=== PATIENT | female | born 1985 | race Caucasian/White ===

== ENCOUNTER 2016-10-16 07:10 | Inpatient (IN) | payer BC ==
[~2016-10-16 07:10] MED LIST: Acetaminophen 325 MG Tab PO PRN; Nalbuphine 20 MG/1 ML Amp IVPUSH PRN; Ondansetron 4 MG/2 ML SDV IVPUSH PRN; Sodium Chloride 0.9% 10 ML Syringe FLUSH PRN
[2016-10-16] MEDS ORDERED: Lactated Ringers 1,000 ML IV SCH (07:15)
[2016-10-16] MEDS ORDERED: Oxytocin/Lactated Ringers 10 UNIT/1,000 ML BAG IV SCH ×2 (07:15)
--- NOTE | 2016-10-16 07:16 | PCM.LDHP ---
L&D History of Present Illness - General Date of Service: 10/16/16 Admit Problem/Dx: Admission Diagnosis/Problem Admission Diagnosis/Problem Source of Information: Patient History Limitations: Reports: No Limitations - History of Present Illness Introduction:: Patient is a 31 y/o at 40 0/7 wks gestation who present for planned IOL. Doing well today. No specific concerns or complaints. Not noticing any signs of labor at this time. 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): Social & Family History - Tobacco Use Smoking Status *Q: Never Smoker - Alcohol Use Alcohol Use History: No - Recreational Drug Use Recreational Drug Use: No H&P Review of Systems - Review of Systems: Review Of Systems: See Below General: Reports: No Symptoms Pulmonary: Reports: No Symptoms Cardiovascular: Reports: No Symptoms Gastrointestinal: Reports: No Symptoms Genitourinary: Reports: No Symptoms Musculoskeletal: Reports: No Symptoms L&D Exam - Exam Exam: See Below - OB Specific Contraction Intensity: Mild Movement: Active Heart Tones: Present Heart Tones per Min: 125 Heart Rate (FHR) Variability: Moderate (6-25 bmp) Presentation: Vertex - Mckeon Score Mckeon Score Cervix Position: Midposition Mckeon Score Consistency: Soft Mckeon Score Effacement: 31-50% Mckeon Score Dilation: 3-4 cm Mckeon Score Infant's Station: -2 Mckeon Score Total: 7 - Exam General: Alert, Oriented, Cooperative Lungs: Clear to Auscultation, Normal Respiratory Effort Cardiovascular: Regular Rate, Regular Rhythm Abdomen: Soft Genitourinary: Normal external exam Extremities: Normal Inspection Skin: Warm, Dry, Intact - Patient Data Result Diagrams: 10/16/16 07:28 - Problem List (1) 40 weeks gestation of SNOMED Code(s): 49611248 ICD Code: Z3A.40 - 40 WEEKS GESTATION OF Status: Acute Current Visit: Yes (2) Elective induction of labor planned SNOMED Code(s): 369742665 ICD Code: [id number] - Status: Acute Current Visit: Yes Problem List Initiated/Reviewed/Updated: Yes Orders Last 24hrs: Active Orders 24 hr Category Date Time Status Activity as Tolerated [RC] PFP Care 10/16/16 07:07 Active Communication Order [RC] ASDIRECTED Care 10/16/16 07:07 Active Communication Order [RC] ASDIRECTED Care 10/16/16 07:07 Active Communication Order [RC] ASDIRECTED Care 10/16/16 07:07 Active Heart Tones [RC] ASDIRECTED Care 10/16/16 07:10 Active Notify Provider [RC] ASDIRECTED Care 10/16/16 07:07 Active Peripheral IV Care [RC] . DIRECTED Care 10/16/16 07:10 Active Vaginal Exam [RC] ASDIRECTED Care 10/16/16 07:07 Active Vital Signs [RC] ASDIRECTED Care 10/16/16 07:07 Active Regular Diet [DIET] Diet 10/16/16 Breakfast Active CBC W/O DIFF,HEMOGRAM [HEME] Routine Lab 10/16/16 07:07 Ordered TYPE AND SCREEN [BBK] Routine Lab 10/16/16 07:07 Ordered Acetaminophen [Tylenol] Med 10/16/16 07:07 Pending 650 mg PO Q4H PRN Lactated Ringers [Ringers, Lactated] 1,000 ml Med 10/16/16 07:15 Ordered IV ASDIRECTED Nalbuphine [Nubain] Med 10/16/16 07:07 Ordered 10 mg IVPUSH Q2H PRN Ondansetron [Zofran] Med 10/16/16 07:07 Ordered 4 mg IVPUSH Q4H PRN Oxytocin/Lactated Ringers [Pitocin in LR 10 Units/1,000 Med 10/16/16 07:15 Ordered ML] 10 unit in 1,000 ml IV TITRATE Oxytocin/Lactated Ringers [Pitocin in LR 10 Units/1,000 Med 10/16/16 07:15 Ordered ML] 10 unit in 1,000 ml IV TITRATE Sodium Chloride 0.9% [Saline Flush] Med 10/16/16 07:07 Ordered 10 ml FLUSH ASDIRECTED PRN Electronic Heart Tones Ext w TOCO [WOMSER] Ot 10/16/16 07:07 Ordered Routine Electronic Heart Tones Internal [WOMSER] Per Unit Ot 10/16/16 07:07 Ordered Routine Peripheral IV Insertion Adult [OM.PC] Routine Ot 10/16/16 07:07 Ordered Medication Orders Acetaminophen (Tylenol) 650 mg PO Q4H PRN PRN Reason: Pain (Mild 1-3) and fever Lactated Ringer's (Ringers, Lactated) 1,000 mls @ 40 mls/hr IV ASDIRECTED JERAD Oxytocin/Lactated Ringer's (Pitocin In Lr 10 Units/1,000 Ml) 10 unit in 1,000 mls @ 500 mls/hr IV TITRATE JERAD PRN Reason: Protocol Oxytocin/Lactated Ringer's (Pitocin In Lr 10 Units/1,000 Ml) 10 unit in 1,000 mls @ 12 mls/hr IV TITRATE JERAD; 2 MUNITS/MIN PRN Reason: Protocol Nalbuphine HCl (Nubain) 10 mg IVPUSH Q2H PRN PRN Reason: Pain (moderate 4-6) Ondansetron HCl (Zofran) 4 mg IVPUSH Q4H PRN PRN Reason: Nausea/Vomiting Sodium Chloride (Saline Flush) 10 ml FLUSH ASDIRECTED PRN PRN Reason: Keep Vein Open Assessment/Plan Comment:: 31 y/o at 40 0/7 wks who presents for elective IOL * CBC and T&S * On initial exam baby found to be breech. Counseled on options. Patient did elect for trial of ECV which was done and unsuccessful. See procedure note. She did desire discharge after ECV, however, was jordy and had made cervical change since clinic earlier this week. She was advised that safest option at this time would be moving forward with a . She agreed. Consent signed and OR crew alerted * Melissa DE JESUS
--- NOTE | 2016-10-16 08:42 | PCM.PRNOTE ---
- Free Text/Narrative Note: PROCEDURE NOTE Procedure Date: Pre-operative Diagnosis: 1. at 40 0/7 wks gestation 2. Breech Presentation Post-operative Diagnosis: 1. As above s/p unsucessful external cephalic version Anesthesia: None Description of Operation/Procedure: The risks, benefits, indications, potential complications, and alternatives were explained to the patient and informed consent obtained. Patient was placed in the supine position. Ultrasound was used to confirm complete breech presentation and appropriate GEOFFREY. Hands were placed on the patient's abdomen. The breech was elevated out of the pelvis while clockwise traction was applied to the head. Ultrasound assessed cardiac activity throughout procedure. Procedure was eventually abandoned due to not being successful. The patient tolerated the procedure well and was placed on continuous electronic monitoring for several hours following the procedure. Complications: The patient tolerated the procedure well and no complications were noted. Plan: Patient Rh positive. No need for Rhogam See H&P from today for further delivery planning
--- NOTE | 2016-10-16 09:27 | PCM.PREANE ---
Preanesthetic Assessment - Anesthesia/Transfusion/Family Hx Anesthesia History: Prior Anesthesia Without Reaction Family History of Anesthesia Reaction: No Transfusion History: No Prior Transfusion(s) Intubation History: Unknown - Review of Systems General: No Symptoms Pulmonary: No Symptoms Cardiovascular: No Symptoms Gastrointestinal: No symptoms (improved GERD) Neurological: No Symptoms Other: Reports: None - Physical Assessment NPO Status Date: 10/16/16 NPO Status Time: 06:00 Pulse: 84 O2 Sat by Pulse Oximetry: 98 Respiratory Rate: 14 Blood Pressure: 106/77 Temperature: 36.5 C Vital Signs: Last Vital Signs Temp 36.5 C 10/16/16 07:30 Pulse 84 10/16/16 07:30 Resp 14 10/16/16 07:30 BP 106/77 10/16/16 07:30 Pulse Ox 98 10/16/16 07:30 Height: 1.68 m Weight: 68.901 kg ASA Class: 2 Mental Status: Alert & Oriented x3 Airway Class: Mallampati = 2 Dentition: Reports: Normal Dentition, Caries Thyro-Mental Finger Breadths: 3 Mouth Opening Finger Breadths: 3 ROM/Head Extension: Full Lungs: Clear to auscultation, Normal respiratory effort Cardiovascular: Regular Rate, Regular Rhythm - Lab Values: Laboratory Last Values WBC 8.95 K/mm3 (3.98-10.04) 10/16/16 07:28 RBC 3.93 M/mm3 (3.98-5.22) L 10/16/16 07:28 Hgb 11.7 gm/L (11.2-15.7) 10/16/16 07:28 Hct 34.7 % (34.1-44.9) 10/16/16 07:28 MCV 88.3 fl (79.4-94.8) 10/16/16 07:28 MCH 29.8 pg (25.6-32.2) 10/16/16 07:28 MCHC 33.7 g/dl (32.2-35.5) 10/16/16 07:28 RDW Std Deviation 39.7 fL (36.4-46.3) 10/16/16 07:28 Plt Count 236 K/mm3 (182-369) 10/16/16 07:28 MPV 10.3 fl (9.4-12.3) 06/30/17 07:28 Blood Type O POSITIVE 10/16/16 07:28 Gel Antibody Screen Negative 10/16/16 07:28 Above lab values noted and reviewed. - Allergies Allergies/Adverse Reactions: Allergies Allergy/AdvReac Type Severity Reaction Status Date / Time No Known Allergies Allergy Verified 10/16/16 08:46 - Anesthesia Plan Pre-Op Medication Ordered: None - Acknowledgements Anesthesia Type Planned: Spinal (Potential noted if current breech presentation does not change to vertex presentation.), Epidural Pt an Appropriate Candidate for the Planned Anesthesia: Yes Alternatives and Risks of Anesthesia Discussed w Pt/Guardian: Yes Pt/Guardian Understands and Agrees with Anesthesia Plan: Yes PreAnesthesia Questionnaire - Past Health History Medical/Surgical History: 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 Smoking Status *Q: Never Smoker Recreational Drug Use History: No - CURRENT (IN HOUSE) MEDS Current Meds: Current Medications Acetaminophen (Tylenol) 650 mg PO Q4H PRN PRN Reason: Pain (Mild 1-3) and fever Lactated Ringer's (Ringers, Lactated) 1,000 mls @ 40 mls/hr IV ASDIRECTED JERAD Oxytocin/Lactated Ringer's (Pitocin In Lr 10 Units/1,000 Ml) 10 unit in 1,000 mls @ 500 mls/hr IV TITRATE JERAD PRN Reason: Protocol Oxytocin/Lactated Ringer's (Pitocin In Lr 10 Units/1,000 Ml) 10 unit in 1,000 mls @ 12 mls/hr IV TITRATE JERAD; 2 MUNITS/MIN PRN Reason: Protocol Nalbuphine HCl (Nubain) 10 mg IVPUSH Q2H PRN PRN Reason: Pain (moderate 4-6) Ondansetron HCl (Zofran) 4 mg IVPUSH Q4H PRN PRN Reason: Nausea/Vomiting Sodium Chloride (Saline Flush) 10 ml FLUSH ASDIRECTED PRN PRN Reason: Keep Vein Open
[2016-10-16] MEDS ORDERED: ceFAZolin 2 GM in Premix Bag 1 BAG IV ONE (11:18)
[2016-10-16] MEDS ORDERED: Metoclopramide 10 MG/2 ML SDV IVPUSH ONE (11:18)
[2016-10-16] MEDS ORDERED: Citric Acid/Sodium Citrate Solution 30 ML Cup PO ONE (11:18)
[2016-10-16] MEDS ORDERED: Citric Acid/Sodium Citrate Solution 30 ML Cup ONE (11:19)
[2016-10-16] MEDS ORDERED: Metoclopramide 10 MG/2 ML SDV ONE (11:19)
[2016-10-16] MEDS ORDERED: Lactated Ringers 0 ML ONE (11:39)
[2016-10-16] MEDS ORDERED: ceFAZolin 1 GM Vial ONE ×3 (11:39→12:52)
[2016-10-16] MEDS ORDERED: Ketorolac 30 MG/ML SDV ONE ×3 (11:39→12:52)
[2016-10-16] MEDS ORDERED: Morphine PF 10 MG/10 ML SDV ONE (11:39)
[2016-10-16] MEDS ORDERED: Ondansetron 4 MG/2 ML SDV ONE ×2 (11:39→12:52)
[2016-10-16] MEDS ORDERED: Oxytocin 10 Units/1 ML SDV ONE ×3 (11:39→12:52)
[2016-10-16] MEDS ORDERED: Phenylephrine 1% 10 MG/ML SDV ONE ×3 (11:39→12:52)
[2016-10-16] MEDS ORDERED: Bupivacaine 0.5% 30 ML SDV ONE (11:54)
[2016-10-16] MEDS ORDERED: fentaNYL 100 MCG/2 ML SDV IVPUSH PRN (12:27)
[2016-10-16] MEDS ORDERED: diphenhydrAMINE 50 MG/ML SDV IVPUSH PRN (12:27)
[2016-10-16] MEDS ORDERED: fentaNYL 100 MCG/2 ML SDV ONE (12:27)
[2016-10-16] MEDS ORDERED: Meperidine PF 50 MG/ML Syringe IVPUSH PRN (12:27)
[2016-10-16] MEDS ORDERED: ePHEDrine 50 MG/ML SDV IVPUSH PRN (12:27)
[2016-10-16] MEDS ORDERED: HYDROmorphone 0.5 MG/0.5 ML Syringe IVPUSH PRN (12:27)
[2016-10-16] MEDS ORDERED: Ondansetron 4 MG/2 ML SDV IVPUSH PRN (12:27)
[2016-10-16] MEDS ORDERED: Phenylephrine 1 MG in Sodium Chloride 0.9% 10 ML IV SCH (12:30)
[2016-10-16] MEDS ORDERED: HYDROmorphone 1 MG/ML Syringe ONE (12:40)
[2016-10-16] MEDS ORDERED: Lactated Ringers 1,000 ML ONE ×2 (12:47→12:52)
--- NOTE | 2016-10-16 13:01 | PCM.OPNOTE ---
- General Post-Op/Procedure Note Date of Surgery/Procedure: 10/16/16 Operative Procedure(s): Primary Low Transverse Findings: Baby girl in a breech presentation. APGARS of 9 & 9. Weight of 8 lbs 6 oz. Normal appearance of the uterus, fallopian tubes, and ovaries. Pre Op Diagnosis: 40 weeks gestation. Breech presentation Post-Op Diagnosis: Same Anesthesia Technique: Spinal Primary Surgeon: Monalisa Childs Secondary Surgeon: Fran Wayne Pathology: Placenta discarded. Cord blood collected Fluid Replacement, Intraop: 1,600 Output, Urine Amount: 150 EBL in mLs: 500 Complications: None Condition: Good Free Text/Narrative:: The risks, benefits, indications, potential complications, and alternatives were explained to the patient and informed consent obtained. After induction of anesthesia, the patient was placed in a supine position and then draped and prepped in the usual sterile manner. A Pfannenstiel incision was made and carried down through the subcutaneous tissue to the fascia. Fascial incision was made and extended transversely. The fascia was from the underlying rectus tissue superiorly and inferiorly. The peritoneum was identified and entered. Peritoneal incision was extended longitudinally. The utero-vesical peritoneal reflection was incised transversely and the bladder flap was bluntly freed from the lower uterine segment. A low transverse uterine incision was made sharply with a scalpel and extended bluntly in a cephalocaudad direction. A baby girl was delivered from a breech presentation with APGARS as above. After the umbilical cord was clamped and cut cord blood was obtained for evaluation. The placenta was removed intact and appeared normal. The uterus was exteriorized and cleared of clots. The uterine outline, tubes and ovaries appeared normal. The uterine incision was closed with running locked sutures of 0 Vicryl. Hemostasis was obtained with a second imbricating layer of 0 vicryl. The uterus was then placed back into the abdomen. There was slight bleeding from the left angle of the hysterotomy. This was controlled with several additional sutures of 0 vicryl and 0 monocryl placed in a figure of eight fashion. The infracolic gutters were cleared of blood clots. Deny seal placed across the hysterotomy. The fascia was then reapproximated with running sutures of 0 Vicryl. The sucutaneous tissue was irrigated with sterile warm normal saline, hemostasis obtained with cautery. The skin was reapproximated with running Subcuticular 4 -0 monocryl sutures. Instrument, sponge, and needle counts were correct prior the abdominal closure and at the conclusion of the case.
--- NOTE | 2016-10-16 13:06 | PCM.POSTAN ---
POST ANESTHESIA ASSESSMENT - MENTAL STATUS Mental Status: alert - VITAL SIGNS Pulse Rate: 50 SaO2: 100 Resp Rate: 10 Blood Pressure: 99/63 Temperature: 36.5 C - RESPIRATORY Respiratory Status: respiratory rate WNL, airway patent, O2 saturation stable - CARDIOVASCULAR CV Status: pulse rate WNL, blood pressure stable - GASTROINTESTINAL GI Status: no symptoms - POST OP HYDRATION Hydration Status: adequate & stable
[2016-10-16] MEDS ORDERED: Acetaminophen/oxyCODONE 325-5 MG Tab PO PRN (13:48)
[2016-10-16] MEDS ORDERED: Dextrose 5%-Lactated Ringers 1,000 ML IV SCH (13:48)
[2016-10-16] MEDS ORDERED: Lanolin 100% Cream 7 GM Tube TOP PRN (13:48)
[2016-10-16] MEDS: Ketorolac 30 MG/ML SDV IVPUSH SCH (19:00)
[2016-10-17] MEDS: Ketorolac 30 MG/ML SDV IVPUSH SCH ×2 (00:52→06:45)
--- NOTE | 2016-10-17 03:45 | PCM48HPAN ---
Post Anesthesia Note - EVALUATION WITHIN 48HRS OF ANESTHETIC Vital Signs in Normal Range: Yes Patient Participated in Evaluation: Yes Respiratory Function Stable: Yes Airway Patent: Yes Cardiovascular Function Stable: Yes Hydration Status Stable: Yes Pain Control Satisfactory: Yes Nausea and Vomiting Control Satisfactory: Yes Mental Status Recovered: Yes
--- NOTE | 2016-10-17 07:59 | PCM.PNPP ---
- General Info Date of Service: 10/17/16 Functional Status: Reports: pain controlled, tolerating diet, ambulating, urinating - Review of Systems General: Reports: No Symptoms Pulmonary: Reports: no symptoms Cardiovascular: Reports: No Symptoms Gastrointestinal: Reports: Abdominal pain (controlled with medications ) Genitourinary: Reports: no symptoms Musculoskeletal: Reports: no symptoms Skin: Reports: no symptoms Neurological: Reports: No Symptoms - Patient Data Vital Signs - most recent: Last Vital Signs Temp 36.8 C 10/17/16 00:00 Pulse 54 L 10/17/16 00:00 Resp 16 10/17/16 07:00 BP 102/50 L 10/17/16 00:00 Pulse Ox 97 10/17/16 07:00 Weight - most recent: 68.901 kg I&O - last 24 hours: Intake & Output 10/16/16 10/17/16 10/17/16 22:59 06:59 14:59 Intake Total 950 250 Output Total 250 1350 Balance 700 -1100 Lab Results - last 24 hrs: Laboratory Results - last 24 hr 10/16/16 10/17/16 Range/Units 07:28 04:52 WBC 9.99 (3.98-10.04) K/mm3 RBC 3.24 L (3.98-5.22) M/mm3 Hgb 9.7 L (11.2-15.7) gm/L Hct 29.4 L (34.1-44.9) % MCV 90.7 (79.4-94.8) fl MCH 29.9 (25.6-32.2) pg MCHC 33.0 (32.2-35.5) g/dl RDW Std Deviation 40.4 (36.4-46.3) fL Plt Count 163 L (182-369) K/mm3 MPV 10.7 (9.4-12.3) fl Blood Type O POSITIVE Gel Antibody Screen Negative Med Orders - Current: Current Medications Emollient Ointment (Lansinoh Hpa) 0 gm TOP ASDIRECTED PRN PRN Reason: Sore Nipples Ibuprofen (Motrin) 600 mg PO Q6H PRN PRN Reason: mild pain or fever Meperidine HCl (Demerol) 12.5 mg IVPUSH ONETIME PRN PRN Reason: shivering Stop: 10/17/16 12:28 Oxycodone/Acetaminophen (Percocet 325-5 Mg) 2 tab PO Q4H PRN PRN Reason: Pain (moderate 4-6) Discontinued Medications Acetaminophen (Tylenol) 650 mg PO Q4H PRN PRN Reason: Pain (Mild 1-3) and fever Bupivacaine HCl (Marcaine 0.5%) Confirm Administered Dose 30 ml .ROUTE .STK-MED ONE Stop: 10/16/16 11:55 Last Admin: 10/16/16 12:01 Dose: 15 ml Cefazolin Sodium (Ancef) Confirm Administered Dose 2 gm .ROUTE .STK-MED ONE Stop: 10/16/16 11:40 Cefazolin Sodium (Ancef) Confirm Administered Dose 2 gm .ROUTE .STK-MED ONE Stop: 10/16/16 12:48 Cefazolin Sodium (Ancef) Confirm Administered Dose 2 gm .ROUTE .STK-MED ONE Stop: 10/16/16 12:53 Citric Acid/Sodium Citrate (Bicitra Solution) 30 ml PO ONETIME ONE Stop: 10/16/16 11:19 Last Admin: 10/16/16 11:33 Dose: 30 ml Citric Acid/Sodium Citrate (Bicitra Solution) Confirm Administered Dose 30 ml .ROUTE .STK-MED ONE Stop: 10/16/16 11:20 Last Admin: 10/16/16 18:17 Dose: Not Given Diphenhydramine HCl (Benadryl) 25 mg IVPUSH Q6H PRN PRN Reason: pruritis Stop: 10/16/16 15:00 Ephedrine Sulfate (Ephedrine Sulfate) 5 mg IVPUSH ASDIRECTED PRN PRN Reason: Hypotension Stop: 10/16/16 15:00 Fentanyl (Sublimaze) Confirm Administered Dose 100 mcg .ROUTE .STK-MED ONE Stop: 10/16/16 12:28 Fentanyl (Sublimaze) 50 mcg IVPUSH Q5M PRN PRN Reason: Pain Stop: 10/16/16 12:43 Hydromorphone HCl (Dilaudid) 0.5 mg IVPUSH Q15M PRN PRN Reason: severe pain Stop: 10/16/16 12:43 Hydromorphone HCl (Dilaudid) Confirm Administered Dose 1 mg .ROUTE .STK-MED ONE Stop: 10/16/16 12:41 Lactated Ringer's (Ringers, Lactated) 1,000 mls @ 40 mls/hr IV ASDIRECTED [facility] Last Admin: 10/16/16 11:25 Dose: 999 mls/hr Oxytocin/Lactated Ringer's (Pitocin In Lr 10 Units/1,000 Ml) 10 unit in 1,000 mls @ 500 mls/hr IV TITRATE JERAD PRN Reason: Protocol Oxytocin/Lactated Ringer's (Pitocin In Lr 10 Units/1,000 Ml) 10 unit in 1,000 mls @ 12 mls/hr IV TITRATE JERAD; 2 MUNITS/MIN PRN Reason: Protocol Cefazolin Sodium/Dextrose 2 gm (/ Premix) 50 mls @ 100 mls/hr IV ONETIME ONE Stop: 10/16/16 11:47 Last Admin: 10/16/16 18:17 Dose: Not Given Lactated Ringer's (Ringers, Lactated) Confirm Administered Dose 0 mls @ as directed .ROUTE .STK-MED ONE Stop: 10/16/16 11:40 Phenylephrine HCl 1 mg/ Sodium (Chloride) 10.1 mls @ 1 mls/sec IV TITRATE JERAD Stop: 10/16/16 15:00 Lactated Ringer's (Ringers, Lactated) Confirm Administered Dose 1,000 mls @ as directed .ROUTE .STK-MED ONE Stop: 10/16/16 12:48 Lactated Ringer's (Ringers, Lactated) Confirm Administered Dose 1,000 mls @ as directed .ROUTE .STK-MED ONE Stop: 10/16/16 12:53 Dextrose/Lactated Ringer's (Dextrose 5%-Lactated Ringers) 1,000 mls @ 125 mls/ hr IV ASDIRECTED [facility] Stop: 10/16/16 21:47 Last Admin: 10/16/16 19:00 Dose: 125 mls/hr Ketorolac Tromethamine (Toradol) Confirm Administered Dose 30 mg .ROUTE .STK- MED ONE Stop: 10/16/16 11:40 Ketorolac Tromethamine (Toradol) Confirm Administered Dose 30 mg .ROUTE .STK- MED ONE Stop: 10/16/16 12:48 Ketorolac Tromethamine (Toradol) Confirm Administered Dose 30 mg .ROUTE .STK- MED ONE Stop: 10/16/16 12:53 Ketorolac Tromethamine (Toradol) 30 mg IVPUSH Q6H JERAD Stop: 10/17/16 06:46 Last Admin: 10/17/16 06:45 Dose: 30 mg Metoclopramide HCl (Reglan) 10 mg IVPUSH ONETIME ONE Stop: 10/16/16 11:19 Last Admin: 10/16/16 11:33 Dose: 10 mg Metoclopramide HCl (Reglan) Confirm Administered Dose 10 mg .ROUTE .STK-MED ONE Stop: 10/16/16 11:20 Last Admin: 10/16/16 18:17 Dose: Not Given Morphine Sulfate (Duramorph Pf) Confirm Administered Dose 10 mg .ROUTE .ST-MED ONE Stop: 10/16/16 11:40 Nalbuphine HCl (Nubain) 10 mg IVPUSH Q2H PRN PRN Reason: Pain (moderate 4-6) Ondansetron HCl (Zofran) 4 mg IVPUSH Q4H PRN PRN Reason: Nausea/Vomiting Ondansetron HCl (Zofran) Confirm Administered Dose 8 mg .ROUTE .ST-MED ONE Stop: 10/16/16 11:40 Ondansetron HCl (Zofran) 4 mg IVPUSH ONETIME PRN PRN Reason: Nausea/Vomiting Stop: 10/16/16 15:00 Ondansetron HCl (Zofran) Confirm Administered Dose 4 mg .ROUTE .STK-MED ONE Stop: 10/16/16 12:53 Oxytocin (Pitocin) Confirm Administered Dose 10 unit .ROUTE .ST-MED ONE Stop: 10/16/16 11:40 Oxytocin (Pitocin) Confirm Administered Dose 10 unit .ROUTE .STK-MED ONE Stop: 10/16/16 12:48 Oxytocin (Pitocin) Confirm Administered Dose 10 unit .ROUTE .STK-MED ONE Stop: 10/16/16 12:53 Phenylephrine HCl (Graham-Synephrine) Confirm Administered Dose 10 mg .ROUTE .STK- MED ONE Stop: 10/16/16 11:40 Phenylephrine HCl (Graham-Synephrine) Confirm Administered Dose 10 mg .ROUTE .STK- MED ONE Stop: 10/16/16 12:48 Phenylephrine HCl (Graham-Synephrine) Confirm Administered Dose 10 mg .ROUTE .STK- MED ONE Stop: 10/16/16 12:53 Sodium Chloride (Saline Flush) 10 ml FLUSH ASDIRECTED PRN PRN Reason: Keep Vein Open - Interaction Infant Disposition, : in Room with Family Interaction: Holding Infant Infant Feeding: Breastfed ; Nursed Well Support Person: - Recovery Exam Fundal Tone: Firm Fundal Level: At Umbilicus Fundal Placement: Midline Lochia Amount: Small Lochia Color: Rubra/Red Perineum Description: Intact, Minimal Bruising/Swelling Episiotomy/Laceration: None Bladder Status: Indwelling Catheter in Place Urinary Elimination: Indwelling Catheter - Exam General: alert, oriented, cooperative Lungs: Clear to auscultation, Normal respiratory effort Cardiovascular: Regular Rate, Regular Rhythm Abdomen: soft, tenderness (appropriate post op) Extremities: no edema Skin: warm, dry, intact Wound/Incisions: healing well - Problem List & Annotations (1) 40 weeks gestation of SNOMED Code(s): 01054924 Code(s): Z3A.40 - 40 WEEKS GESTATION OF Status: Acute Current Visit: Yes (2) Elective induction of labor planned SNOMED Code(s): 821104001 Code(s): QHE5432 - Status: Acute Current Visit: Yes (3) Breech presentation SNOMED Code(s): 0313108 Code(s): O32.1XX0 - MATERNAL CARE FOR BREECH PRESENTATION, UNSP Status: Acute Current Visit: Yes (4) S/P SNOMED Code(s): 633220166, 906252221 Code(s): Z98.891 - HISTORY OF UTERINE SCAR FROM PREVIOUS SURGERY Status: Acute Current Visit: Yes - Problem List Review Problem List Initiated/Reviewed/Updated: Yes - My Orders Last 24 Hours: My Active Orders 10/16/16 13:11 Resuscitation Status Routine 10/16/16 13:48 Activity as Tolerated [RC] .Routine Antiembolic Devices [RC] PER UNIT ROUTINE Intake and Output [RC] Q4HR May Shower [RC] Notify Provider Intake and Out [RC] ASDIRECTED RT Incentive Spirometry [RC] Q2HWA Vital Signs [RC] Q1HR Acetaminophen/oxyCODONE [Percocet 325-5 MG] 2 tab PO Q4H PRN Lanolin [Lansinoh HPA] See Dose Instructions TOP ASDIRECTED PRN Assess Lochia [WOMSER] Per Unit Routine Assess Uterine Involution [WOMSER] Per Unit Routine Breast Pump [WOMSER] Per Unit Routine Medication Administration Instruction [OM.PC] Routine Peripheral IV Discontinue [OM.PC] Routine Sequential Compression Device [OM.PC] Per Unit Routine 10/16/16 Lunch Regular Diet [DIET] 10/17/16 12:45 Ibuprofen [Motrin] 600 mg PO Q6H PRN - Assessment Assessment:: 31 y/o G4 now P4004 POD#1 from [facility] at 40 0/7 wks - Plan Plan:: S/P [facility] * Routine cares * Encourage breast feeding * Discharge home in 1-2 days
[2016-10-17] MEDS ORDERED: Docusate Sodium 100 MG Cap PO PRN (12:01)
[2016-10-17] MEDS ORDERED: Simethicone 80 MG Tab.Chew PO PRN (12:02)
[2016-10-17 12:11] VITALS: BP 96/62
[2016-10-17] MEDS ORDERED: Ibuprofen 600 MG Tab PO PRN (12:45)
--- NOTE | 2016-10-17 13:58 | PCM.DCSUM1 ---
Discharge Summary - Discharge Data Discharge Date: 10/17/16 Discharge Disposition: Home, Self-Care 01 Condition: Good - Discharge Diagnosis/Problem(s) (1) 40 weeks gestation of SNOMED Code(s): 62306836 ICD Code: Z3A.40 - 40 WEEKS GESTATION OF Status: Acute (2) Elective induction of labor planned SNOMED Code(s): 835977736 ICD Code: [id number] - Status: Acute (3) Breech presentation SNOMED Code(s): 3538881 ICD Code: O32.1XX0 - MATERNAL CARE FOR BREECH PRESENTATION, UNSP Status: Acute Qualifiers: Fetus number: single or unspecified fetus Qualified Code(s): O32.1XX0 - Maternal care for breech presentation, not applicable or unspecified (4) S/P SNOMED Code(s): 693277728, 671812791 ICD Code: Z98.891 - HISTORY OF UTERINE SCAR FROM PREVIOUS SURGERY Status: Acute - Patient Summary/Data Operative Procedure(s) Performed: Primary Low Transverse Complications: None Consults: None Recommended Follow-up Testing/Procedures: Follow up in 1-2 weeks for incision check Hospital Course: 31 y/o was admitted at 40 0/7 wks for elective IOL. On initial assessment, however, she was found to have a baby in breech presentation. Attempt made at ECV, but unsuccessful. She was then taken for PLTCS. See operative note. Post operatively she did well adn actually requested discharge home on POD#1. This as felt to be reasonable and so was done. - Patient Instructions Diet: Regular Diet as Tolerated Activity: As Tolerated, No Lifting Over 10 Pounds Activity, Other: Pelvic Rest for 6 weeks Driving: Do Not Drive (While taking narcotics ) Showering/Bathing: May Shower, No Tub Bathing/Swimming Wound/Incision Care: Keep Operative Site/Wound Site Clean and Dry Notify Provider of: Fever, Increased Pain, Swelling and Redness, Drainage, Nausea and/or Vomiting - Discharge Plan Prescriptions/Med Rec: Acetaminophen/oxyCODONE [Percocet 325-5 MG] 2 tab PO Q4H PRN #30 tablet PRN Reason: Pain Home Medications: Home Meds Vit W-Ca,Fe,FA(<1 mg) [ Vitamins] 1 tab PO DAILY 10/16/16 [ History] Acetaminophen/oxyCODONE [Percocet 325-5 MG] 2 tab PO Q4H PRN #30 tablet [Rx] Docusate Sodium [Colace] 100 mg PO BID PRN #0 cap 10/17/16 [Rx] Ibuprofen [IJD: Ibuprofen] 600 mg PO Q6H PRN #0 tablet 10/17/16 [Rx] Patient Handouts: Delivery, Care After, Home Care Instructions for Mom Referrals: Monalisa Childs MD [Primary Care Provider] - (Call to schedule appointment with Dr. Childs for 1-2 weeks for incision check.) - Discharge Summary/Plan Comment DC Time >30 min.: No - Patient Data Vitals - Most Recent: Last Vital Signs Temp 36.3 C 10/17/16 11:58 Pulse 69 10/17/16 11:58 Resp 15 10/17/16 11:58 BP 96/62 10/17/16 11:58 Pulse Ox 98 10/17/16 11:58 Weight - Most Recent: 68.901 kg I&O - Last 24 hours: Intake & Output 10/16/16 10/17/16 10/17/16 22:59 06:59 14:59 Intake Total 950 250 Output Total 250 1350 925 Balance 700 -1100 -925 Lab Results - Last 24 hrs: Laboratory Results - last 24 hr 10/17/16 Range/Units 04:52 WBC 9.99 (3.98-10.04) K/mm3 RBC 3.24 L (3.98-5.22) M/mm3 Hgb 9.7 L (11.2-15.7) gm/L Hct 29.4 L (34.1-44.9) % MCV 90.7 (79.4-94.8) fl MCH 29.9 (25.6-32.2) pg MCHC 33.0 (32.2-35.5) g/dl RDW Std Deviation 40.4 (36.4-46.3) fL Plt Count 163 L (182-369) K/mm3 MPV 10.7 (9.4-12.3) fl Med Orders - Current: Current Medications Docusate Sodium (Colace) 100 mg PO BID PRN PRN Reason: Constipation Emollient Ointment (Lansinoh Hpa) 0 gm TOP ASDIRECTED PRN PRN Reason: Sore Nipples Ibuprofen (Motrin) 600 mg PO Q6H PRN PRN Reason: mild pain or fever Oxycodone/Acetaminophen (Percocet 325-5 Mg) 2 tab PO Q4H PRN PRN Reason: Pain (moderate 4-6) Simethicone (Simethicone) 80 mg PO ASDIRECTED PRN PRN Reason: Gas Discontinued Medications Acetaminophen (Tylenol) 650 mg PO Q4H PRN PRN Reason: Pain (Mild 1-3) and fever Bupivacaine HCl (Marcaine 0.5%) Confirm Administered Dose 30 ml .ROUTE .STK-MED ONE Stop: 10/16/16 11:55 Last Admin: 10/16/16 12:01 Dose: 15 ml Cefazolin Sodium (Ancef) Confirm Administered Dose 2 gm .ROUTE .STK-MED ONE Stop: 10/16/16 11:40 Cefazolin Sodium (Ancef) Confirm Administered Dose 2 gm .ROUTE .STK-MED ONE Stop: 10/16/16 12:48 Cefazolin Sodium (Ancef) Confirm Administered Dose 2 gm .ROUTE .STK-MED ONE Stop: 10/16/16 12:53 Citric Acid/Sodium Citrate (Bicitra Solution) 30 ml PO ONETIME ONE Stop: 10/16/16 11:19 Last Admin: 10/16/16 11:33 Dose: 30 ml Citric Acid/Sodium Citrate (Bicitra Solution) Confirm Administered Dose 30 ml .ROUTE .STK-MED ONE Stop: 10/16/16 11:20 Last Admin: 10/16/16 18:17 Dose: Not Given Diphenhydramine HCl (Benadryl) 25 mg IVPUSH Q6H PRN PRN Reason: pruritis Stop: 10/16/16 15:00 Ephedrine Sulfate (Ephedrine Sulfate) 5 mg IVPUSH ASDIRECTED PRN PRN Reason: Hypotension Stop: 10/16/16 15:00 Fentanyl (Sublimaze) Confirm Administered Dose 100 mcg .ROUTE .STK-MED ONE Stop: 10/16/16 12:28 Fentanyl (Sublimaze) 50 mcg IVPUSH Q5M PRN PRN Reason: Pain Stop: 10/16/16 12:43 Hydromorphone HCl (Dilaudid) 0.5 mg IVPUSH Q15M PRN PRN Reason: severe pain Stop: 10/16/16 12:43 Hydromorphone HCl (Dilaudid) Confirm Administered Dose 1 mg .ROUTE .STK-MED ONE Stop: 10/16/16 12:41 Lactated Ringer's (Ringers, Lactated) 1,000 mls @ 40 mls/hr IV ASDIRECTED JERAD Last Admin: 10/16/16 11:25 Dose: 999 mls/hr Oxytocin/Lactated Ringer's (Pitocin In Lr 10 Units/1,000 Ml) 10 unit in 1,000 mls @ 500 mls/hr IV TITRATE JERAD PRN Reason: Protocol Oxytocin/Lactated Ringer's (Pitocin In Lr 10 Units/1,000 Ml) 10 unit in 1,000 mls @ 12 mls/hr IV TITRATE JERAD; 2 MUNITS/MIN PRN Reason: Protocol Cefazolin Sodium/Dextrose 2 gm (/ Premix) 50 mls @ 100 mls/hr IV ONETIME ONE Stop: 10/16/16 11:47 Last Admin: 10/16/16 18:17 Dose: Not Given Lactated Ringer's (Ringers, Lactated) Confirm Administered Dose 0 mls @ as directed .ROUTE .STK-MED ONE Stop: 10/16/16 11:40 Phenylephrine HCl 1 mg/ Sodium (Chloride) 10.1 mls @ 1 mls/sec IV TITRATE JERAD Stop: 10/16/16 15:00 Lactated Ringer's (Ringers, Lactated) Confirm Administered Dose 1,000 mls @ as directed .ROUTE .STK-MED ONE Stop: 10/16/16 12:48 Lactated Ringer's (Ringers, Lactated) Confirm Administered Dose 1,000 mls @ as directed .ROUTE .STK-MED ONE Stop: 10/16/16 12:53 Dextrose/Lactated Ringer's (Dextrose 5%-Lactated Ringers) 1,000 mls @ 125 mls/ hr IV ASDIRECTED JERAD Stop: 10/16/16 21:47 Last Admin: 10/16/16 19:00 Dose: 125 mls/hr Ketorolac Tromethamine (Toradol) Confirm Administered Dose 30 mg .ROUTE .STK- MED ONE Stop: 10/16/16 11:40 Ketorolac Tromethamine (Toradol) Confirm Administered Dose 30 mg .ROUTE .ST- MED ONE Stop: 10/16/16 12:48 Ketorolac Tromethamine (Toradol) Confirm Administered Dose 30 mg .ROUTE .ST- MED ONE Stop: 10/16/16 12:53 Ketorolac Tromethamine (Toradol) 30 mg IVPUSH Q6H JERAD Stop: 10/17/16 06:46 Last Admin: 10/17/16 06:45 Dose: 30 mg Meperidine HCl (Demerol) 12.5 mg IVPUSH ONETIME PRN PRN Reason: shivering Stop: 10/17/16 12:28 Metoclopramide HCl (Reglan) 10 mg IVPUSH ONETIME ONE Stop: 10/16/16 11:19 Last Admin: 10/16/16 11:33 Dose: 10 mg Metoclopramide HCl (Reglan) Confirm Administered Dose 10 mg .ROUTE .[facility] ONE Stop: 10/16/16 11:20 Last Admin: 10/16/16 18:17 Dose: Not Given Morphine Sulfate (Duramorph Pf) Confirm Administered Dose 10 mg .ROUTE .[facility]-MED ONE Stop: 10/16/16 11:40 Nalbuphine HCl (Nubain) 10 mg IVPUSH Q2H PRN PRN Reason: Pain (moderate 4-6) Ondansetron HCl (Zofran) 4 mg IVPUSH Q4H PRN PRN Reason: Nausea/Vomiting Ondansetron HCl (Zofran) Confirm Administered Dose 8 mg .ROUTE .[facility]-MED ONE Stop: 10/16/16 11:40 Ondansetron HCl (Zofran) 4 mg IVPUSH ONETIME PRN PRN Reason: Nausea/Vomiting Stop: 10/16/16 15:00 Ondansetron HCl (Zofran) Confirm Administered Dose 4 mg .ROUTE .ST-MED ONE Stop: 10/16/16 12:53 Oxytocin (Pitocin) Confirm Administered Dose 10 unit .ROUTE .ST-MED ONE Stop: 10/16/16 11:40 Oxytocin (Pitocin) Confirm Administered Dose 10 unit .ROUTE .ST-MED ONE Stop: 10/16/16 12:48 Oxytocin (Pitocin) Confirm Administered Dose 10 unit .ROUTE .STK-MED ONE Stop: 10/16/16 12:53 Phenylephrine HCl (Graham-Synephrine) Confirm Administered Dose 10 mg .ROUTE .STK- MED ONE Stop: 10/16/16 11:40 Phenylephrine HCl (Graham-Synephrine) Confirm Administered Dose 10 mg .ROUTE .STK- MED ONE Stop: 10/16/16 12:48 Phenylephrine HCl (Graham-Synephrine) Confirm Administered Dose 10 mg .ROUTE .STK- MED ONE Stop: 10/16/16 12:53 Sodium Chloride (Saline Flush) 10 ml FLUSH ASDIRECTED PRN PRN Reason: Keep Vein Open *Q Meaningful Use (DIS) - VTE *Q VTE Criteria *Q: - Stroke *Q Stroke Criteria *Q: - AMI *Q AMI Criteria *Q:
== END 2016-10-17 15:15 | disposition home or self-care (01) | DRG 540 ==
LOC: JD.OBCHECK 07:10 → JD.OB 07:11 → JD.OBCHECK 07:15 → JD.OB 07:21 → OBSVTOIN 12:08 → JD.OB 13:56
PROVIDERS: ADMIT Obstetrics & Gynecology; ATTEND Obstetrics & Gynecology
PROC: 10D00Z1 Extraction of Products of Conception, Low, Open Approach (ICD-10-PCS; principal; 2016-10-16)
DX: O32.1XX0 Maternal care for breech presentation, not applicable or unspecified (principal); O48.0 Post-term pregnancy; Z3A.40 40 weeks gestation of pregnancy; Z37.0 Single live birth
CPT/HCPCS: 01961; 36415; 85027; 86850; 86900; 86901; 94762; A9270-GY; J0690; J1170; J1885; J2270; J2370; J2405; J2590; J2765; J3010; J7042; J7120

== ENCOUNTER 2018-09-19 06:59 | Inpatient (IN) | payer OTHER ==
[~2018-09-19 06:59] MED LIST changes: -Acetaminophen 325 MG Tab PO PRN; +Bupivacaine 0.25% 10 ML SDV ONE; +Lidocaine 1.5% with EPINEPHrine 1:200,000 5 ML Amp ONE; -Nalbuphine 20 MG/1 ML Amp IVPUSH PRN; -Ondansetron 4 MG/2 ML SDV IVPUSH PRN; -Sodium Chloride 0.9% 10 ML Syringe FLUSH PRN
[2018-09-19] MEDS ORDERED: Ampicillin 2 GM in Sodium Chloride 0.9% 100 ML IV ONE (07:18)
[2018-09-19] MEDS ORDERED: Sodium Chloride 0.9% 10 ML Syringe FLUSH PRN (07:18)
[2018-09-19] MEDS ORDERED: Nalbuphine 20 MG/ML 1 ML Syringe IVPUSH PRN (07:18)
[2018-09-19] MEDS ORDERED: Ondansetron 4 MG/2 ML SDV IVPUSH PRN (07:18)
--- NOTE | 2018-09-19 07:22 | PCM.LDHP ---
L&D History of Present Illness - General Date of Service: 09/19/18 Admit Problem/Dx: Patient Status Order with Admit Dx/Problem 09/19/18 07:19 Patient Status [ADT] Routine Admission Diagnosis/Problem Admission Diagnosis/Problem Normal in third trimester Source of Information: Patient History Limitations: Reports: No Limitations - History of Present Illness Introduction:: Patient is a 32 y/o at 39 2/7 wks who presents for elective IOL/TOLAC. Doing well today. Some contractions, but nothing patterned. No other concerns. - Related Data Allergies/Adverse Reactions: Allergies Allergy/AdvReac Type Severity Reaction Status Date / Time No Known Allergies Allergy Verified 09/19/18 07:41 Home Medications: Home Meds Pnv No.122/Iron/Folic Acid [ Multi Tablet] 1 each PO DAILY 09/19/18 [ History] Past Medical History [employer] History: Reports: : 5 Para: 4 LMP (Approximate): Psychiatric History: Reports: Anxiety - Past Surgical History HEENT Surgical History: Reports: Oral Surgery Female Surgical History: Reports: Section Social & Family History - Family History Family Medical History: Noncontributory - Tobacco Use Smoking Status *Q: Never Smoker - Caffeine Use Caffeine Use: Reports: Coffee - Alcohol Use Alcohol Use History: No - Recreational Drug Use Recreational Drug Use: No H&P Review of Systems - Review of Systems: Review Of Systems: See Below General: Reports: No Symptoms Pulmonary: Reports: No Symptoms Cardiovascular: Reports: No Symptoms Gastrointestinal: Reports: No Symptoms Genitourinary: Reports: No Symptoms Musculoskeletal: Reports: No Symptoms L&D Exam - Exam Exam: See Below - OB Specific Contraction Intensity: Irritability Movement: Active Heart Tones: Present Heart Tones per Min: 140 Heart Rate (FHR) Variability: Moderate (6-25 bmp) Presentation: Vertex - Mckeon Score Mckeon Score Cervix Position: Midposition Mckeon Score Consistency: Soft Mckeon Score Effacement: 51-70% Mckeon Score Dilation: 3-4 cm Mckeon Score Infant's Station: -2 Mckeon Score Total: 8 - Exam General: Alert, Oriented, Cooperative Lungs: Clear to Auscultation, Normal Respiratory Effort Cardiovascular: Regular Rate, Regular Rhythm GI/Abdominal Exam: Soft, Non-Tender Genitourinary: Normal external exam Extremities: Normal Inspection Skin: Warm, Dry, Intact - Patient Data Result Diagrams: 09/19/18 07:29 - Problem List (1) 39 weeks gestation of SNOMED Code(s): 96846457 ICD Code: Z3A.39 - 39 WEEKS GESTATION OF Status: Acute Current Visit: Yes (2) GBS (group B Streptococcus carrier), +RV culture, currently SNOMED Code(s): 9731402424832, 548879088, 1043069852231 ICD Code: O99.820 - STREPTOCOCCUS B CARRIER STATE COMPLICATING Status: Acute Current Visit: Yes (3) Desires (vaginal after ) trial SNOMED Code(s): 442353652, 658540192 ICD Code: O34.219 - MATERNAL CARE FOR UNSP TYPE SCAR FROM PREVIOUS DEL Status: Acute Current Visit: Yes (4) Elective induction of labor planned SNOMED Code(s): 278847240 ICD Code: [id number] - Status: Acute Current Visit: No Problem List Initiated/Reviewed/Updated: Yes Orders Last 24hrs: Active Orders 24 hr Category Date Time Status Patient Status [ADT] Routine ADT 09/19/18 07:19 Ordered Activity as Tolerated [RC] PFP Care 09/19/18 07:19 Ordered Communication Order [RC] ASDIRECTED Care 09/19/18 07:19 Ordered Communication Order [RC] ASDIRECTED Care 09/19/18 07:19 Ordered Communication Order [RC] ASDIRECTED Care 09/19/18 07:19 Ordered Heart Tones [RC] ASDIRECTED Care 09/19/18 07:19 Ordered Monitoring [RC] INTERMITTENT Care 09/19/18 07:19 Ordered Non Stress Test [RC] PER UNIT ROUTINE Care 09/19/18 07:19 Ordered Notify Provider [RC] ASDIRECTED Care 09/19/18 07:19 Ordered Notify Provider [RC] PRN Care 09/19/18 07:19 Ordered Peripheral IV Care [RC] . DIRECTED Care 09/19/18 07:19 Ordered Vaginal Exam [RC] ASDIRECTED Care 09/19/18 07:19 Ordered Vital Signs [RC] ASDIRECTED Care 09/19/18 07:19 Ordered Vital Signs [RC] PER UNIT ROUTINE Care 09/19/18 07:19 Ordered Regular Diet [DIET] Diet 09/19/18 Breakfast Ordered CBC W/O DIFF,HEMOGRAM [HEME] Routine Lab 09/19/18 07:18 Ordered RAPID PLASMA REAGIN,RPR [CHEM] Routine Lab 09/19/18 07:19 Ordered TYPE AND SCREEN [BBK] Routine Lab 09/19/18 07:18 Ordered Ampicillin 1 gm Med 09/19/18 07:30 Ordered Sodium Chloride 0.9% [Normal Saline] 100 ml IV Q4H Ampicillin 2 gm Med 09/19/18 07:18 Ordered Sodium Chloride 0.9% [Normal Saline] 100 ml IV ONETIME Lactated Ringers [Ringers, Lactated] 1,000 ml Med 09/19/18 07:30 Ordered IV ASDIRECTED Nalbuphine [Nubain] Med 09/19/18 07:18 Ordered 10 mg IVPUSH Q2H PRN Ondansetron [Zofran] Med 09/19/18 07:18 Ordered 4 mg IVPUSH Q4H PRN Oxytocin/Lactated Ringers [Pitocin in LR 10 Units/1,000 Med 09/19/18 07:30 Ordered ML] 10 unit in 1,000 ml IV .CONTINUOUS Oxytocin/Lactated Ringers [Pitocin in LR 10 Units/1,000 Med 09/19/18 07:30 Ordered ML] 10 unit in 1,000 ml IV TITRATE Sodium Chloride 0.9% [Saline Flush] Med 09/19/18 07:18 Ordered 10 ml FLUSH ASDIRECTED PRN Electronic Heart Tones Ext w TOCO [WOMSER] Oth 09/19/18 07:19 Ordered Routine Electronic Heart Tones Internal [WOMSER] Per Unit Oth 09/19/18 07:19 Ordered Routine Peripheral IV Insertion Adult [OM.PC] Routine Oth 09/19/18 07:19 Ordered Resuscitation Status Routine Resus Stat 09/19/18 07:18 Ordered Medication Orders Ampicillin Sodium 2 gm/ Sodium (Chloride) 100 mls @ 200 mls/hr IV ONETIME ONE Stop: 09/19/18 07:47 Ampicillin Sodium 1 gm/ Sodium (Chloride) 100 mls @ 200 mls/hr IV Q4H JERAD Lactated Ringer's (Ringers, Lactated) 1,000 mls @ 40 mls/hr IV ASDIRECTED JERAD Oxytocin/Lactated Ringer's (Pitocin In Lr 10 Units/1,000 Ml) 10 unit in 1,000 mls @ 12 mls/hr IV TITRATE JERAD; Protocol Oxytocin/Lactated Ringer's (Pitocin In Lr 10 Units/1,000 Ml) 10 unit in 1,000 mls @ 500 mls/hr IV .CONTINUOUS JERAD Nalbuphine HCl (Nubain) 10 mg IVPUSH Q2H PRN PRN Reason: pain Ondansetron HCl (Zofran) 4 mg IVPUSH Q4H PRN PRN Reason: Nausea/Vomiting Sodium Chloride (Saline Flush) 10 ml FLUSH ASDIRECTED PRN PRN Reason: Keep Vein Open Assessment/Plan Comment:: 32 y/o at 39 2/7 wks presents for IOL * Reviewed risks/benefits of TOLAC. Consent signed * Labs * GBS positive, will start Ampicillin * Pitocin to be started. AROM after 2nd dose fo Ampicillin * Pain management per patient preference * Anticipate
[2018-09-19] MEDS ORDERED: Oxytocin/Lactated Ringers 10 UNIT/1,000 ML BAG IV SCH ×2 (07:30)
[2018-09-19] MEDS: Lactated Ringers 1,000 ML IV SCH ×2 (07:55→12:59)
[2018-09-19] MEDS ORDERED: Bupivacaine/fentaNYL/NS 100 ML Bag EPIDUR PRN (08:47)
[2018-09-19] MEDS ORDERED: ePHEDrine 50 MG/ML SDV IVPUSH PRN (08:47)
[2018-09-19] MEDS ORDERED: fentaNYL 100 MCG/2 ML SDV EPIDUR PRN (08:47)
[2018-09-19] MEDS ORDERED: diphenhydrAMINE 50 MG/ML SDV IVPUSH PRN (08:47)
--- NOTE | 2018-09-19 08:55 | PCM.PREANE ---
Preanesthetic Assessment - Procedure Proposed Procedure: greg - Anesthesia/Transfusion/Family Hx Anesthesia History: Prior Anesthesia Without Reaction Family History of Anesthesia Reaction: No Transfusion History: No Prior Transfusion(s) Intubation History: Unknown - Review of Systems General: No Symptoms Pulmonary: Other (has a cold and sore throat) Cardiovascular: No Symptoms Gastrointestinal: No Symptoms Neurological: No Symptoms Other: Reports: None - Physical Assessment Pulse: 80 O2 Sat by Pulse Oximetry: 99 Respiratory Rate: 20 Blood Pressure: 107/70 Height: 5 ft 5 in Weight: 69.672 kg ASA Class: 2 Mental Status: Alert & Oriented x3 Airway Class: Mallampati = 1 Dentition: Reports: Normal Dentition Thyro-Mental Finger Breadths: 3 Mouth Opening Finger Breadths: 3 ROM/Head Extension: Full Lungs: Clear to Auscultation, Normal Respiratory Effort Cardiovascular: Regular Rate, Regular Rhythm - Lab Values: Laboratory Last Values WBC 12.94 K/mm3 (3.98-10.04) H 09/19/18 07:29 RBC 4.15 M/mm3 (3.98-5.22) 09/19/18 07:29 Hgb 12.5 gm/L (11.2-15.7) D 09/19/18 07:29 Hct 37.5 % (34.1-44.9) 09/19/18 07:29 MCV 90.4 fl (79.4-94.8) 09/19/18 07:29 MCH 30.1 pg (25.6-32.2) 09/19/18 07:29 MCHC 33.3 g/dl (32.2-35.5) 09/19/18 07:29 RDW Std Deviation 41.9 fL (36.4-46.3) 09/19/18 07:29 Plt Count 230 K/mm3 (182-369) 09/19/18 07:29 MPV 10.5 fl (9.4-12.3) 09/19/18 07:29 Blood Type O POSITIVE 09/19/18 07:29 Gel Antibody Screen Negative 09/19/18 07:29 - Allergies Allergies/Adverse Reactions: Allergies Allergy/AdvReac Type Severity Reaction Status Date / Time No Known Allergies Allergy Verified 09/19/18 07:41 - Blood Blood Available: No - Acknowledgements Anesthesia Type Planned: Epidural Pt an Appropriate Candidate for the Planned Anesthesia: Yes Alternatives and Risks of Anesthesia Discussed w Pt/Guardian: Yes Pt/Guardian Understands and Agrees with Anesthesia Plan: Yes PreAnesthesia Questionnaire - Past Health History Medical/Surgical History: Denies Medical/Surgical History HEENT History: Reports: Other (See Below) (has night time sore throat because of cold now) Cardiovascular History: Reports: None Respiratory History: Reports: None Gastrointestinal History: Reports: None 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: : 5 (39 2) Para: 4 Musculoskeletal History: Reports: None - SUBSTANCE USE Smoking Status *Q: Never Smoker Tobacco Use Within Last Twelve Months: No Second Hand Smoke Exposure: No Days Per Week of Alcohol Use: 0 Recreational Drug Use History: No - HOME MEDS Home Medications: Home Meds Pnv No.122/Iron/Folic Acid [ Multi Tablet] 1 each PO DAILY 09/19/18 [ History] - CURRENT (IN HOUSE) MEDS Current Meds: Current Medications Ampicillin Sodium 1 gm/ Sodium (Chloride) 100 mls @ 200 mls/hr IV Q4H JERAD Lactated Ringer's (Ringers, Lactated) 1,000 mls @ 40 mls/hr IV ASDIRECTED JERAD Last Admin: 09/19/18 07:55 Dose: 40 mls/hr Oxytocin/Lactated Ringer's (Pitocin In Lr 10 Units/1,000 Ml) 10 unit in 1,000 mls @ 12 mls/hr IV TITRATE JERAD; Protocol Last Titration: 09/19/18 08:40 Dose: 4 munits/min, 24 mls/hr Oxytocin/Lactated Ringer's (Pitocin In Lr 10 Units/1,000 Ml) 10 unit in 1,000 mls @ 500 mls/hr IV .CONTINUOUS JERAD Nalbuphine HCl (Nubain) 10 mg IVPUSH Q2H PRN PRN Reason: pain Ondansetron HCl (Zofran) 4 mg IVPUSH Q4H PRN PRN Reason: Nausea/Vomiting Sodium Chloride (Saline Flush) 10 ml FLUSH ASDIRECTED PRN PRN Reason: Keep Vein Open Discontinued Medications Ampicillin Sodium 2 gm/ Sodium (Chloride) 100 mls @ 200 mls/hr IV ONETIME ONE Stop: 09/19/18 07:47 Last Admin: 09/19/18 07:55 Dose: 200 mls/hr
[2018-09-19] MEDS: Ampicillin 1 GM in Sodium Chloride 0.9% 100 ML IV SCH ×2 (11:53→20:59)
--- NOTE | 2018-09-19 16:10 | PCM.DEL ---
L & D Note - General Info Date of Service: 09/19/18 - Delivery Note Labor: Induced by ARM, Induced by Oxytocin Delivery Outcome: Livebirth Infant Delivery Method: Spontaneous Vaginal Delivery-Single Infant Delivery Mode: Spontaneous Presentation: Right Occiput Anterior (GAMALIEL) Nuchal Cord: Present, Reduced Anesthesia Type: Epidural Amniotic Fluid Description: Clear Episiotomy Type: None Laceration: None Placenta: Intact, Spontaneous Cord: 3 Vessels Estimated Blood Loss: 200 : Bulb Syringe, Stimulated, Warmed, [place] Used, Warmer Used Delivery Comments (Free Text/Narrative):: Patient found be complete and began pushing. With maternal pushing effort head delivered from an GAMALIEL presentation. Nuchal cord present and reduced. With gentle downward traction the shoulders and body delivered. placed on maternal abdomen. Cord clamped and cut. Cord blood obtained. Placenta allowed time to separate and expelled intact. Inspection of the perineum showed no lacerations - General Info Date of Service: 09/19/18 - Patient Data Vitals - Most Recent: Last Vital Signs Temp 36.4 C 09/19/18 07:19 Pulse 80 09/19/18 08:55 Resp 20 09/19/18 08:55 BP 107/70 09/19/18 08:55 Pulse Ox 99 09/19/18 08:55 Weight - Most Recent: 69.672 kg I&O - Last 24 Hours: Intake & Output 09/19/18 09/19/18 09/19/18 06:59 14:59 22:59 Intake Total 620 Balance 620 Lab Results Last 24 Hours: Laboratory Results - last 24 hr 09/19/18 09/19/18 Range/Units 07:29 07:29 WBC 12.94 H (3.98-10.04) K/mm3 RBC 4.15 (3.98-5.22) M/mm3 Hgb 12.5 D (11.2-15.7) gm/L Hct 37.5 (34.1-44.9) % MCV 90.4 (79.4-94.8) fl MCH 30.1 (25.6-32.2) pg MCHC 33.3 (32.2-35.5) g/dl RDW Std Deviation 41.9 (36.4-46.3) fL Plt Count 230 (182-369) K/mm3 MPV 10.5 (9.4-12.3) fl Blood Type O POSITIVE Gel Antibody Screen Negative Med Orders - Current: Current Medications Diphenhydramine HCl (Benadryl) 25 mg IVPUSH Q6H PRN PRN Reason: pruritis Ephedrine Sulfate (Ephedrine Sulfate) 5 mg IVPUSH ASDIRECTED PRN PRN Reason: Hypotension Fentanyl (Sublimaze) 100 mcg EPIDUR Q3H PRN PRN Reason: Pain Last Admin: 09/19/18 12:40 Dose: 100 mcg Fentanyl/Bupivacaine HCl (Fentanyl/Bupivacaine/Ns 2 Mcg-0.125% 100 Ml) 100 ml EPIDUR ASDIRECTED PRN PRN Reason: Pain Last Admin: 09/19/18 12:40 Dose: 100 ml Ampicillin Sodium 1 gm/ Sodium (Chloride) 100 mls @ 200 mls/hr IV Q4H JERAD Last Admin: 09/19/18 11:53 Dose: 200 mls/hr Lactated Ringer's (Ringers, Lactated) 1,000 mls @ 40 mls/hr IV ASDIRECTED JERAD Last Admin: 09/19/18 12:59 Dose: 500 mls/hr Oxytocin/Lactated Ringer's (Pitocin In Lr 10 Units/1,000 Ml) 10 unit in 1,000 mls @ 12 mls/hr IV TITRATE JERAD; Protocol Last Titration: 09/19/18 15:10 Dose: 14 munits/min, 84 mls/hr Oxytocin/Lactated Ringer's (Pitocin In Lr 10 Units/1,000 Ml) 10 unit in 1,000 mls @ 500 mls/hr IV .CONTINUOUS JERAD Nalbuphine HCl (Nubain) 10 mg IVPUSH Q2H PRN PRN Reason: pain Ondansetron HCl (Zofran) 4 mg IVPUSH Q4H PRN PRN Reason: Nausea/Vomiting Sodium Chloride (Saline Flush) 10 ml FLUSH ASDIRECTED PRN PRN Reason: Keep Vein Open Discontinued Medications Ampicillin Sodium 2 gm/ Sodium (Chloride) 100 mls @ 200 mls/hr IV ONETIME ONE Stop: 09/19/18 07:47 Last Admin: 09/19/18 07:55 Dose: 200 mls/hr - Problem List & Annotations (1) , delivered, current hospitalization SNOMED Code(s): 425935022 Code(s): O34.219 - MATERNAL CARE FOR UNSP TYPE SCAR FROM PREVIOUS DEL Status: Acute Current Visit: Yes (2) 39 weeks gestation of SNOMED Code(s): 07232493 Code(s): Z3A.39 - 39 WEEKS GESTATION OF Status: Acute Current Visit: Yes (3) GBS (group B Streptococcus carrier), +RV culture, currently SNOMED Code(s): 7682359661608, 910089683, 1893814055994 Code(s): O99.820 - STREPTOCOCCUS B CARRIER STATE COMPLICATING Status: Acute Current Visit: Yes - Problem List Review Problem List Initiated/Reviewed/Updated: Yes - My Orders Last 24 Hours: My Active Orders 09/19/18 07:18 Nalbuphine [Nubain] 10 mg IVPUSH Q2H PRN Ondansetron [Zofran] 4 mg IVPUSH Q4H PRN Sodium Chloride 0.9% [Saline Flush] 10 ml FLUSH ASDIRECTED PRN Resuscitation Status Routine 09/19/18 07:19 Patient Status [ADT] Routine Activity as Tolerated [RC] PFP Communication Order [RC] ASDIRECTED Communication Order [RC] ASDIRECTED Communication Order [RC] ASDIRECTED Notify Provider [RC] ASDIRECTED Notify Provider [RC] PRN Peripheral IV Care [RC] Q2HR Vital Signs [RC] ASDIRECTED Electronic Heart Tones Ext w TOCO [WOMSER] Routine Electronic Heart Tones Internal [WOMSER] Per Unit Routine Peripheral IV Insertion Adult [OM.PC] Routine 09/19/18 07:29 RAPID PLASMA REAGIN,RPR [CHEM] Routine 09/19/18 07:30 Lactated Ringers [Ringers, Lactated] 1,000 ml IV ASDIRECTED Oxytocin/Lactated Ringers [Pitocin in LR 10 Units/1,000 ML] 10 unit in 1,000 ml IV .CONTINUOUS Oxytocin/Lactated Ringers [Pitocin in LR 10 Units/1,000 ML] 10 unit in 1,000 ml IV TITRATE 09/19/18 11:30 Ampicillin 1 gm Sodium Chloride 0.9% [Normal Saline] 100 ml IV Q4H 09/19/18 Breakfast Regular Diet [DIET] - Assessment Assessment:: 32 y/o G5 now [id number] PPD#0 from at 39 2/7 wks - Plan Plan:: * Routine cares * Encourage breast feeding * Discharge home in 1-2 days
[2018-09-19] MEDS ORDERED: Acetaminophen 325 MG Tab PO PRN (17:48)
[2018-09-19] MEDS ORDERED: Lanolin 100% Cream 7 GM Tube TOP PRN (17:48)
[2018-09-19] MEDS ORDERED: Witch Hazel Medicated Pads 40/Jar TOP PRN (17:48)
[2018-09-19] MEDS ORDERED: Benzocaine/Menthol 20%-0.5% Spray 56 GM Canister TOP PRN (17:48)
[2018-09-19] MEDS: Docusate Sodium 100 MG Cap PO PRN (18:41)
[2018-09-19] MEDS: Ibuprofen 600 MG Tab PO PRN (18:41)
[2018-09-20] MEDS: Ibuprofen 600 MG Tab PO PRN ×2 (03:43→20:30)
--- NOTE | 2018-09-20 07:17 | PCM.PNPP ---
- General Info Date of Service: 09/20/18 Functional Status: Reports: Pain Controlled, Tolerating Diet, Ambulating, Urinating - Review of Systems General: Reports: No Symptoms Pulmonary: Reports: No Symptoms Cardiovascular: Reports: No Symptoms Gastrointestinal: Reports: No Symptoms Genitourinary: Reports: No Symptoms Musculoskeletal: Reports: No Symptoms Neurological: Reports: No Symptoms - Patient Data Vital Signs - Most Recent: Last Vital Signs Temp 36.8 C 09/20/18 03:39 Pulse 54 L 09/20/18 03:39 Resp 16 09/20/18 03:39 BP 104/42 L 09/20/18 03:39 Pulse Ox 96 09/20/18 03:39 Weight - Most Recent: 69.672 kg I&O - Last 24 Hours: Intake & Output 09/19/18 09/20/18 09/20/18 22:59 06:59 14:59 Intake Total 4200 Balance 4200 Lab Results - Last 24 Hours: Laboratory Results - last 24 hr 09/19/18 09/19/18 09/19/18 Range/Units 07:29 07:29 07:29 WBC 12.94 H (3.98-10.04) K/mm3 RBC 4.15 (3.98-5.22) M/mm3 Hgb 12.5 D (11.2-15.7) gm/L Hct 37.5 (34.1-44.9) % MCV 90.4 (79.4-94.8) fl MCH 30.1 (25.6-32.2) pg MCHC 33.3 (32.2-35.5) g/dl RDW Std Deviation 41.9 (36.4-46.3) fL Plt Count 230 (182-369) K/mm3 MPV 10.5 (9.4-12.3) fl RPR Non-reactive (NONREACTIVE) Blood Type O POSITIVE Gel Antibody Screen Negative Med Orders - Current: Current Medications Acetaminophen (Tylenol) 650 mg PO Q4H PRN PRN Reason: mild pain or fever Benzocaine/Menthol (Dermoplast Pain Relief [place]) 0 gm TOP ASDIRECTED PRN PRN Reason: Perineal Comfort Measure Last Admin: 09/19/18 18:40 Dose: 1 canister Docusate Sodium (Colace) 100 mg PO BID PRN PRN Reason: Constipation Last Admin: 09/19/18 18:41 Dose: 100 mg Emollient Ointment (Lansinoh Hpa) 0 gm TOP ASDIRECTED PRN PRN Reason: Sore Nipples Last Admin: 09/19/18 18:42 Dose: 1 tube Ibuprofen (Motrin) 600 mg PO Q6H PRN PRN Reason: Mild pain or fever Last Admin: 09/20/18 03:43 Dose: 600 mg Witch Valery (Tucks) 1 pad TOP ASDIRECTED PRN PRN Reason: Perineal Comfort Measure Last Admin: 09/19/18 18:41 Dose: 1 container Discontinued Medications Diphenhydramine HCl (Benadryl) 25 mg IVPUSH Q6H PRN PRN Reason: pruritis Ephedrine Sulfate (Ephedrine Sulfate) 5 mg IVPUSH ASDIRECTED PRN PRN Reason: Hypotension Fentanyl (Sublimaze) 100 mcg EPIDUR Q3H PRN PRN Reason: Pain Last Admin: 09/19/18 12:40 Dose: 100 mcg Fentanyl/Bupivacaine HCl (Fentanyl/Bupivacaine/Ns 2 Mcg-0.125% 100 Ml) 100 ml EPIDUR ASDIRECTED PRN PRN Reason: Pain Last Admin: 09/19/18 12:40 Dose: 100 ml Ampicillin Sodium 2 gm/ Sodium (Chloride) 100 mls @ 200 mls/hr IV ONETIME ONE Stop: 09/19/18 07:47 Last Admin: 09/19/18 07:55 Dose: 200 mls/hr Ampicillin Sodium 1 gm/ Sodium (Chloride) 100 mls @ 200 mls/hr IV Q4H JERAD Last Admin: 09/19/18 20:59 Dose: Not Given Lactated Ringer's (Ringers, Lactated) 1,000 mls @ 40 mls/hr IV ASDIRECTED JERAD Last Admin: 09/19/18 12:59 Dose: 500 mls/hr Oxytocin/Lactated Ringer's (Pitocin In Lr 10 Units/1,000 Ml) 10 unit in 1,000 mls @ 12 mls/hr IV TITRATE JERAD; Protocol Last Titration: 09/19/18 15:57 Dose: 999 mls/hr Oxytocin/Lactated Ringer's (Pitocin In Lr 10 Units/1,000 Ml) 10 unit in 1,000 mls @ 500 mls/hr IV .CONTINUOUS JERAD Last Admin: 09/19/18 16:45 Dose: 999 mls/hr Nalbuphine HCl (Nubain) 10 mg IVPUSH Q2H PRN PRN Reason: pain Ondansetron HCl (Zofran) 4 mg IVPUSH Q4H PRN PRN Reason: Nausea/Vomiting Sodium Chloride (Saline Flush) 10 ml FLUSH ASDIRECTED PRN PRN Reason: Keep Vein Open - Infant Interaction Disposition, : [place] in Room with Family Interaction: Holding Infant Feeding: Breastfed Infant; Nursed Well Support Person: - Recovery Exam Fundal Tone: Firm Fundal Level: 2 Fingerbreadths Below Umbilicus Fundal Placement: Midline Lochia Amount: Small Lochia Color: Rubra/Red Episiotomy/Laceration: None Bladder Status: Voiding Urinary Elimination: Voided - Exam General: Alert, Oriented, Cooperative GI/Abdominal Exam: Soft, Non-Tender Extremities: Normal Inspection Skin: Warm, Dry, Intact - Problem List & Annotations (1) , delivered, current hospitalization SNOMED Code(s): 026525632 Code(s): O34.219 - MATERNAL CARE FOR UNSP TYPE SCAR FROM PREVIOUS DEL Status: Acute Current Visit: Yes (2) 39 weeks gestation of SNOMED Code(s): 99212641 Code(s): Z3A.39 - 39 WEEKS GESTATION OF Status: Acute Current Visit: Yes (3) GBS (group B Streptococcus carrier), +RV culture, currently SNOMED Code(s): 2220512850184, 317622838, 1378179407068 Code(s): O99.820 - STREPTOCOCCUS B CARRIER STATE COMPLICATING Status: Acute Current Visit: Yes - Problem List Review Problem List Initiated/Reviewed/Updated: Yes - My Orders Last 24 Hours: My Active Orders 09/19/18 07:18 Resuscitation Status Routine 09/19/18 17:48 Activity as Tolerated [RC] PER UNIT ROUTINE Vital Signs [RC] 03,09,15,21 Acetaminophen [Tylenol] 650 mg PO Q4H PRN Benzocaine/Menthol [Dermoplast Pain Relief [place]] See Dose Instructions TOP ASDIRECTED PRN Docusate Sodium [Colace] 100 mg PO BID PRN Ibuprofen [Motrin] 600 mg PO Q6H PRN Lanolin [Lansinoh HPA] See Dose Instructions TOP ASDIRECTED PRN Witpadilla Valery [Tucks] 1 pad TOP ASDIRECTED PRN Assess Lochia [WOMSER] Per Unit Routine Assess Uterine Involution [WOMSER] Per Unit Routine Breast Pump [WOMSER] Per Unit Routine Heat Therapy [OM.PC] PRN Perineal Care [OM.PC] Per Unit Routine Peripheral IV Discontinue [OM.PC] Routine Sitz Bath [OM.PC] Per Unit Routine 09/19/18 Dinner Regular Diet [DIET] 09/20/18 17:48 Heat Therapy [OM.PC] PRN - Assessment Assessment:: 32 y/o G5 now P5005 PPD#1 from at 39 2/7 wks - Plan Plan:: * Routine cares * Encourage breast feeding * Discharge home today vs tomorrow depending upon patient preference
--- NOTE | 2018-09-20 07:24 | PCM48HPAN ---
Post Anesthesia Note - EVALUATION WITHIN 48HRS OF ANESTHETIC Vital Signs in Normal Range: Yes Patient Participated in Evaluation: Yes Respiratory Function Stable: Yes Airway Patent: Yes Cardiovascular Function Stable: Yes Hydration Status Stable: Yes Pain Control Satisfactory: Yes Nausea and Vomiting Control Satisfactory: Yes Mental Status Recovered: Yes - COMMENTS/OBSERVATIONS Free Text/Narrative:: Patient presents this am with all symptoms of right sided high epidural resolved. Right upper eye lid and right hand/right side all back to normal with no residual side effects/symptoms noted.
[2018-09-20] MEDS: Docusate Sodium 100 MG Cap PO PRN (20:30)
--- NOTE | 2018-09-21 06:52 | PCM.DCSUM1 ---
Discharge Summary - Discharge Data Discharge Date: 09/21/18 Discharge Disposition: Home, Self-Care 01 Condition: Good - Discharge Diagnosis/Problem(s) (1) , delivered, current hospitalization SNOMED Code(s): 909618060 ICD Code: O34.219 - MATERNAL CARE FOR UNSP TYPE SCAR FROM PREVIOUS DEL Status: Acute Current Visit: Yes (2) 39 weeks gestation of SNOMED Code(s): 11917565 ICD Code: Z3A.39 - 39 WEEKS GESTATION OF Status: Acute Current Visit: Yes (3) GBS (group B Streptococcus carrier), +RV culture, currently SNOMED Code(s): 4894684488484, 691916607, 0749687122235 ICD Code: O99.820 - STREPTOCOCCUS B CARRIER STATE COMPLICATING Status: Acute Current Visit: Yes - Patient Summary/Data Complications: None Consults: None Recommended Follow-up Testing/Procedures: Follow up in 3-6 weeks for check Hospital Course: 32 y/o presented at 39 2/7 wks for IOL / TOLAC. This was done with pitocin and AROM. She progressed well to complete dilation and underwent an uncomplicated . See delivery note. she did well and was discharged home on PPD#2 - Patient Instructions Diet: Regular Diet as Tolerated Activity: As Tolerated Activity, Other: Pelvic rest for 6 weeks Driving: May Drive Today Showering/Bathing: May Shower Showering/Bathing, Other: may bathe Notify Provider of: Fever, Increased Pain, Swelling and Redness, Drainage, Nausea and/or Vomiting - Discharge Plan *PRESCRIPTION DRUG MONITORING PROGRAM REVIEWED*: Not Applicable *COPY OF PRESCRIPTION DRUG MONITORING REPORT IN PATIENT GIOVANNI: Not Applicable Home Medications: Home Meds Docusate Sodium [Colace] 100 mg PO BID PRN cap 09/19/18 [Rx] Ibuprofen [Motrin] 600 mg PO Q6H PRN tablet 09/19/18 [Rx] Pnv No.122/Iron/Folic Acid [ Multi Tablet] 1 each PO DAILY 09/19/18 [ History] Referrals: Monalisa Childs MD [Primary Care Provider] - (3 weeks for check ) - Discharge Summary/Plan Comment DC Time >30 min.: No - Patient Data Vitals - Most Recent: Last Vital Signs Temp 36.3 C 09/21/18 03:18 Pulse 44 L 09/21/18 03:18 Resp 15 09/21/18 03:18 BP 96/52 L 09/21/18 03:18 Pulse Ox 97 09/21/18 03:18 Weight - Most Recent: 69.672 kg I&O - Last 24 hours: Intake & Output 09/20/18 09/20/18 09/21/18 14:59 22:59 06:59 Intake Total 120 240 Balance 120 240 Med Orders - Current: Current Medications Acetaminophen (Tylenol) 650 mg PO Q4H PRN PRN Reason: mild pain or fever Benzocaine/Menthol (Dermoplast Pain Relief [place]) 0 gm TOP ASDIRECTED PRN PRN Reason: Perineal Comfort Measure Last Admin: 09/19/18 18:40 Dose: 1 canister Docusate Sodium (Colace) 100 mg PO BID PRN PRN Reason: Constipation Last Admin: 09/20/18 20:30 Dose: 100 mg Emollient Ointment (Lansinoh Hpa) 0 gm TOP ASDIRECTED PRN PRN Reason: Sore Nipples Last Admin: 09/19/18 18:42 Dose: 1 tube Ibuprofen (Motrin) 600 mg PO Q6H PRN PRN Reason: Mild pain or fever Last Admin: 09/20/18 20:30 Dose: 600 mg Witch Valery (Tucks) 1 pad TOP ASDIRECTED PRN PRN Reason: Perineal Comfort Measure Last Admin: 09/19/18 18:41 Dose: 1 container Discontinued Medications Bupivacaine HCl (Sensorcaine-Mpf 0.25%) 20 ml .ROUTE .STK-MED ONE Stop: 09/19/18 00:01 Diphenhydramine HCl (Benadryl) 25 mg IVPUSH Q6H PRN PRN Reason: pruritis Ephedrine Sulfate (Ephedrine Sulfate) 5 mg IVPUSH ASDIRECTED PRN PRN Reason: Hypotension Fentanyl (Sublimaze) 100 mcg EPIDUR Q3H PRN PRN Reason: Pain Last Admin: 09/19/18 12:40 Dose: 100 mcg Fentanyl/Bupivacaine HCl (Fentanyl/Bupivacaine/Ns 2 Mcg-0.125% 100 Ml) 100 ml EPIDUR ASDIRECTED PRN PRN Reason: Pain Last Admin: 09/19/18 12:40 Dose: 100 ml Ampicillin Sodium 2 gm/ Sodium (Chloride) 100 mls @ 200 mls/hr IV ONETIME ONE Stop: 09/19/18 07:47 Last Admin: 09/19/18 07:55 Dose: 200 mls/hr Ampicillin Sodium 1 gm/ Sodium (Chloride) 100 mls @ 200 mls/hr IV Q4H JERAD Last Admin: 09/19/18 20:59 Dose: Not Given Lactated Ringer's (Ringers, Lactated) 1,000 mls @ 40 mls/hr IV ASDIRECTED JERAD Last Admin: 09/19/18 12:59 Dose: 500 mls/hr Oxytocin/Lactated Ringer's (Pitocin In Lr 10 Units/1,000 Ml) 10 unit in 1,000 mls @ 12 mls/hr IV TITRATE JERAD; Protocol Last Titration: 09/19/18 15:57 Dose: 999 mls/hr Oxytocin/Lactated Ringer's (Pitocin In Lr 10 Units/1,000 Ml) 10 unit in 1,000 mls @ 500 mls/hr IV .CONTINUOUS JERAD Last Admin: 09/19/18 16:45 Dose: 999 mls/hr Lidocaine/Epinephrine (Xylocaine-Mpf 1.5% W/Epinephrine 1:200,000) 5 ml .ROUTE .STK-MED ONE Stop: 09/19/18 00:01 Nalbuphine HCl (Nubain) 10 mg IVPUSH Q2H PRN PRN Reason: pain Ondansetron HCl (Zofran) 4 mg IVPUSH Q4H PRN PRN Reason: Nausea/Vomiting Sodium Chloride (Saline Flush) 10 ml FLUSH ASDIRECTED PRN PRN Reason: Keep Vein Open
[2018-09-21 11:30] VITALS: BP 117/77
== END 2018-09-21 10:55 | disposition home or self-care (01) | DRG 807 ==
LOC: JD.OB 06:59 → OBSVTOIN 15:57 → JD.OB 15:58
PROVIDERS: ADMIT Obstetrics & Gynecology; ATTEND Obstetrics & Gynecology
PROC: 10E0XZZ Delivery of Products of Conception, External Approach (ICD-10-PCS; principal; 2018-09-19)
PROC: 3E033VJ Introduction of Other Hormone into Peripheral Vein, Percutaneous Approach (ICD-10-PCS; 2018-09-19)
PROC: 10907ZC Drainage of Amniotic Fluid, Therapeutic from Products of Conception, Via Natural or Artificial Opening (ICD-10-PCS; 2018-09-19)
PROC: 6A550ZT Pheresis of Cord Blood Stem Cells, Single (ICD-10-PCS; 2018-09-19)
PROC: 00HU33Z Insertion of Infusion Device into Spinal Canal, Percutaneous Approach (ICD-10-PCS; 2018-09-19)
DX: O34.219 Maternal care for unspecified type scar from previous cesarean delivery (principal); Z37.0 Single live birth; N85.8 Other specified noninflammatory disorders of uterus; O99.824 Streptococcus B carrier state complicating childbirth; O69.81X0 Labor and delivery complicated by cord around neck, without compression, not applicable or unspecified; Z3A.39 39 weeks gestation of pregnancy
CPT/HCPCS: 36415; 51702; 59025; 59409; 85027; 86592; 86850; 86900; 86901; A9270-GY; J0290; J2590; J3010; J3490; J7030; J7120

== ENCOUNTER 2021-11-02 19:55 | Emergency (ER) | payer BC, OTHER ==
[2021-11-02 21:55] VITALS: BP 121/80; PULSE 57
[2021-11-02] MEDS ORDERED: cefTRIAXone 1 GM, Lidocaine 1% 2.1 ML IM ONE ×2 (22:22)
[2021-11-02] MEDS ORDERED: Phenazopyridine 95 MG Tab PO STA (22:24)
== END 2021-11-02 23:00 | disposition home or self-care (01) ==
LOC: JD.ED 19:55
DX: N39.0 Urinary tract infection, site not specified (principal)
CPT/HCPCS: 81001; 87086; 87088; 87186; 96372; 99284; A9270; J0696; 99283